=== PATIENT | female | born 1990 | race Caucasian/White ===

== ENCOUNTER 2018-03-28 07:00 | Inpatient (IN) | payer MEDICAID, OTHER ==
[2018-03-28] VITALS (51 sets, daily range): BP systolic 120–163; BP diastolic 59–97
[~2018-03-28] VITALS: Ht 167.6 cm; Wt 80.7 kg
[2018-03-28] MEDS ORDERED: D5 LR IV SOLUTION 1,000 ML IV ONE (07:20)
[2018-03-28] MEDS ORDERED: OXYTOCIN/NORMAL SALINE 500 ML IV SCH ×2 (07:38→15:14)
[2018-03-28] MEDS ORDERED: D5 LR IV SOLUTION 1,000 ML IV SCH (07:38)
--- NOTE | 2018-03-28 07:42 | OB Bishop Score ---
Miller Score 7 CTAHI SMYTH MD Mar 28, 2018 07:42
--- NOTE | 2018-03-28 07:44 | History & Physical ---
History and Physical Date Seen by Provider: Mar 28, 2018 Time Seen by Provider: 07:42 This patient is a 27-year-old G1 white female with an EDC of 12 1218 putting her now 39 weeks gestation. She is admitted for induction of labor at her request. She denies rupture membranes or bleeding. She's had no problems with his . Her GBS culture after 35 weeks gestation was negative. Allergies are none Medications are vitamins Medical social and surgical histories are per the antepartum record HEENT exam is normal Neck is supple with no lymphadenopathy no thyromegaly Abdomen is gravid soft nontender nondistended Extreme show no clubbing cyanosis. There is no Homans sign. Pelvic exam shows a cervix 1 cm dilated 80 percent effaced and 0 to +1 station vertex presentation with the cervix is soft and it anterior. This equates to a Miller at least 7. Assessment and plan 39 week intrauterine with no complications and a favorable cervix admitted now for induction of labor. Anticipation is for a vaginal delivery. 39 week admitted for elective induction of labor Allergies and Home Medications Allergies Coded Allergies: No Known Drug Allergies (Unverified , 03/28/18) Patient Home Medication List Home Medication List Reviewed: Yes CATHI SMYTH MD Mar 28, 2018 07:44
[2018-03-28 08:05] LABS: BASOPHILS % (AUTO) 0 % (0-10); EOSINOPHILS # (AUTO) 0.1 10^3/uL (0.0-0.3); EOSINOPHILS % (AUTO) 1 % (0-10); HEMATOCRIT 38 % (35-52); HEMOGLOBIN 13.1 G/DL (11.5-16.0); LYMPHOCYTES # (AUTO) 1.3 X 10^3 (1.0-4.0); LYMPHOCYTES % (AUTO) 13 % (12-44); MEAN CORPUSCULAR HEMOGLOBIN 30 PG (25-34); MEAN CORPUSCULAR HGB CONC 35 G/DL (32-36); MEAN CORPUSCULAR VOLUME 87 FL (80-99); MEAN PLATELET VOLUME 9.5 FL (7.4-10.4); MONOCYTES # (AUTO) 0.7 X 10^3 (0.0-1.0); MONOCYTES % (AUTO) 8 % (0-12); NEUTROPHILS # (AUTO) 7.4 X 10^3 (1.8-7.8); NEUTROPHILS % (AUTO) 78 % (42-75); PLATELET COUNT 415 10^3/uL (130-400); RED BLOOD COUNT 4.35 10^6/uL (4.35-5.85); RED CELL DISTRIBUTION WIDTH 12.7 % (10.0-14.5); WHITE BLOOD COUNT 9.5 10^3/uL (4.3-11.0)
[2018-03-28] MEDS ORDERED: LACTATED RINGERS 1,000 ML IV ONE (09:45)
[2018-03-28] MEDS ORDERED: SUFENTA 0.6MCG/ML BUPIVA 0.125 100 ML ONE (09:47)
[2018-03-28] MEDS ORDERED: BUPIVACAINE 0.25% 30 ML (SENSORCAINE) VIAL ONE (10:01)
[2018-03-28] MEDS ORDERED: fentaNYL INJECTION 100 MCG/2 ML AMP ONE (10:01)
[2018-03-28] MEDS ORDERED: PREN1TAB79 PO (10:04)
[2018-03-28] MEDS ORDERED: LACTATED RINGERS 1,000 ML IV SCH (11:52)
[2018-03-28] MEDS ORDERED: FLU QUADRIvalent (5+ YOA) 2018-2019 (AFLURIA) 0.5 ML IM ONE (12:00)
[2018-03-28] MEDS ORDERED: diphenhydrAMINE 50 MG/ML INJ (BENADRYL) IV PRN (12:00)
[2018-03-28] MEDS ORDERED: ONDANSETRON 4 MG/2 ML (SDV) Z0FRAN IV PRN (12:00)
[2018-03-28] MEDS ORDERED: METOCLOPRAMIDE INJ 10 MG/2 ML (REGLAN) IV PRN (12:00)
[2018-03-28] MEDS ORDERED: NALOXONE 0.4 MG/ML 1 ML (NARCAN) VIAL IV PRN ×2 (12:00)
[2018-03-28] MEDS ORDERED: EPIDURAL (SUFENTA 0.6MCG/ML BUPIVA 0.125%) 100 ML BAG EPI PRN (12:00)
[2018-03-28] MEDS ORDERED: LIDOCAINE/EPI 2% 1:200,00 (XYLOCAINE) 10 ML VIAL ONE (13:10)
[2018-03-28] MEDS ORDERED: LIDOCAINE/EPI 1%-1:200,000 (XYLOCAINE) 10 ML VIAL INJ ONE (14:10)
[2018-03-28] MEDS ORDERED: ONDANSETRON 4 MG/2 ML (SDV) Z0FRAN IVP PRN (15:15)
[2018-03-28] MEDS ORDERED: MEASLES,MUMPS,RUBELLA 1 EA INJ SC ONE (15:15)
[2018-03-28] MEDS ORDERED: BENZOCAINE/MENTHOL (DERMOPLAST) 56 ML CAN TP PRN (15:15)
[2018-03-28] MEDS ORDERED: TETANUS,DIPTH,PERTUSS P/F (BOOSTRIX) 0.5 ML VIAL IM ONE (15:15)
[2018-03-28] MEDS ORDERED: WITCH HAZEL(TUCKS) 40 EA JAR ONE (15:54)
[2018-03-28] MEDS: KETOROLAC 30 MG/ML VIAL IV SCH ×2 (15:59→22:10)
[2018-03-28] MEDS ORDERED: WITCH HAZEL(TUCKS) 40 EA JAR TOP PRN (16:00)
[2018-03-28] MEDS: oxyCODONE/APAP 5/325MG (PERCOCET 5) TABLET PO PRN ×2 (18:22→21:21)
--- NOTE | 2018-03-28 20:56 | OPERATIVE REPORT ---
DATE OF SERVICE: 03/28/2018 DELIVERY NOTE The patient delivered by term spontaneous vaginal delivery, a viable male with Apgars of 8 and 9 at 1 and 5 minutes respectively, weight of 6 pounds 5 ounces, time of 1434 and a cord blood gas is pending. The infant was delivered over a midline episiotomy under local and epidural analgesia. There was a nuchal cord x1 that was easily released after delivery of the head. The infant was bulb suctioned on delivery of the head and again on completion of delivery. Umbilical cord doubly clamped, father cut the cord, the baby was passed to mom's abdomen. The placenta delivered fairly promptly spontaneously Piña. It was normal with a 3-vessel cord. The cervix, vagina, rectum perineum were examined and found intact, except for the midline episiotomy that had been performed at the patient's request when the was bulging on the perineum and she could not expel the vertex through the perineum. The delivery was accomplished very promptly after the episiotomy was performed. The episiotomy was repaired with a single suture of 3-0 Vicryl Rapide in the usual manner without difficulty. Good hemostasis and good anatomic reapproximation. The patient tolerated the delivery and the repair well and remained in the LDR for recovery. The baby remained with the mom. Sponge and needle counts were correct. Estimated blood loss was around 200 mL. Placenta was sent to pathology for permanent section. Job ID: [id number] DocumentID: [id number] Dictated Date: 03/28/2018 14:52:14 Civil Engineering Professor Date: 03/28/2018 20:56:14 Dictated By: CATHI SMYTH MD
[2018-03-28] MEDS: DOCUSATE SODIUM 100 MG (COLACE) CAP PO SCH (22:10)
[2018-03-29 03:46] VITALS: BP 132/85
[2018-03-29] MEDS: KETOROLAC 30 MG/ML VIAL IV SCH (03:46)
--- NOTE | 2018-03-29 07:50 | Progress Note-Standard ---
Standard Progress Note Progress Notes/Assess & Plan Date Seen by a Provider: Mar 29, 2018 Time Seen by a Provider: 07:49 Progress/Assessment & Plan This patient is without complaint. She is ambulating, voiding, tolerating oral intake well has good pain control. Vital Signs 03/28/18 03/29/18 14:35 03:46 Temp 98.6 Pulse 92 Resp 18 B/P (MAP) 132/85 (101) Pulse Ox 97 O2 Delivery Room Air O2 Flow Rate 15.00 Vital signs are stable. Patient is afebrile. Fundus is firm below the umbilicus and nontender. Extremities show no clubbing cyanosis. There is no Homans sign. Assessment and plan post day number 1 status post term spontaneous vaginal delivery doing well. Plan is for routine convalescence care today and likely discharge home tomorrow CATHI SMYTH MD Mar 29, 2018 07:50
[2018-03-29] MEDS ORDERED: OXYC1TAB87 PO (07:54)
[2018-03-29] MEDS ORDERED: DOCU100C37 PO (07:54)
[2018-03-29] MEDS ORDERED: IBUP-1780 PO (07:54)
--- NOTE | 2018-03-29 07:55 | Discharge Instructions ---
Discharge Instructions Discharge Medications New, Converted or Re-Newed RX: RX on Chart Patient Instructions Patient Instructions: As directed Return to The Hospital For: As directed Activity & Diet Discharge Diet: No Restrictions Activity as Tolerated: No Orders-Post D/C & Referrals Follow Up Appt: Call to make follow up appt. for patient in 4 weeks. Activity Per routine post vaginal delivery instructions. Diet as tolerated Patient may shower or tub bathe as desired. CATHI SMYTH MD Mar 29, 2018 07:55
[2018-03-29] MEDS: oxyCODONE/APAP 5/325MG (PERCOCET 5) TABLET PO PRN ×3 (08:15→20:47)
[2018-03-29 11:09] VITALS: BP 130/79
[2018-03-29 12:50] VITALS: BP 116/80
[2018-03-30 00:19] VITALS: BP 124/76
[2018-03-30] MEDS: IBUPROFEN 800 MG (MOTRIN) TAB PO SCH ×3 (00:19→11:29)
[2018-03-30 05:26] VITALS: BP 138/84
--- NOTE | 2018-03-30 07:02 | Progress Note-Standard ---
Standard Progress Note Progress Notes/Assess & Plan Date Seen by a Provider: Mar 30, 2018 Time Seen by a Provider: 07:01 Progress/Assessment & Plan This patient is without complaint. She is ambulating, voiding, tolerating oral intake well has good pain control. Vital Signs 03/28/18 03/29/18 14:35 03:46 Temp 98.6 Pulse 92 Resp 18 B/P (MAP) 132/85 (101) Pulse Ox 97 O2 Delivery Room Air O2 Flow Rate 15.00 Vital signs are stable. Patient is afebrile. Fundus is firm below the umbilicus and nontender. Extremities show no clubbing cyanosis. There is no Homans sign. Assessment and plan post day number 1 status post term spontaneous vaginal delivery doing well. Plan is for routine convalescence care today and likely discharge home tomorrow March 30, 2018 Patient is without complaint. She is ambulating, voiding, tolerating oral intake well, has good pain control, and is requesting discharge home. Vital Signs 03/28/18 03/30/18 14:35 05:26 Temp 97.9 Pulse 70 Resp 20 B/P (MAP) 138/84 (102) Pulse Ox 99 O2 Delivery Room Air O2 Flow Rate 15.00 Vital signs are stable. Patient is afebrile. Fundus is firm below the umbilicus and nontender. Extremities show no clubbing cyanosis. There is no Homans sign. There is minimal pretibial pitting edema. Assessment and plan day number 2 status post term spontaneous vaginal delivery doing well. Plan is for discharge home with follow-up in clinic Final Diagnosis Term spontaneous vaginal delivery CATHI SMYTH MD Mar 30, 2018 07:02
[2018-03-30] MEDS: DOCUSATE SODIUM 100 MG (COLACE) CAP PO SCH (08:16)
[2018-03-30] MEDS: oxyCODONE/APAP 5/325MG (PERCOCET 5) TABLET PO PRN (08:16)
[2018-03-30 08:17] VITALS: BP 146/87
[2018-03-30] MEDS ORDERED: TETANUS,DIPTH,PERTUSS P/F (BOOSTRIX) 0.5 ML VIAL IM ONE (10:57)
== END 2018-03-30 12:35 | disposition home or self-care (01) | DRG 807 ==
LOC: LDRP 07:16
PROVIDERS: ADMIT Obstetrics & Gynecology; ATTEND Obstetrics & Gynecology
PROC: 10E0XZZ Delivery of Products of Conception, External Approach (ICD-10-PCS; principal; 2018-03-28)
PROC: 0W8NXZZ Division of Female Perineum, External Approach (ICD-10-PCS; 2018-03-28)
PROC: 3E033VJ Introduction of Other Hormone into Peripheral Vein, Percutaneous Approach (ICD-10-PCS; 2018-03-28)
DX: O69.81X0 Labor and delivery complicated by cord around neck, without compression, not applicable or unspecified (principal); Z37.0 Single live birth; Z3A.39 39 weeks gestation of pregnancy
CPT/HCPCS: 36415; 85025; 88307; 90715

== ENCOUNTER 2019-10-27 14:52 | Emergency (ER) | payer BC, MEDICAID ==
[~2019-10-27] VITALS: Ht 66 cm; Wt 82.0 kg
[~2019-10-27 14:52] MED LIST: DOCU100C37 PO; IBUP-1780 PO; OXYC1TAB87 PO; PREN1TAB79 PO
--- OUTSIDE RECORDS SUMMARY | 2019-10-27 14:56 | XMS REPORT | Continuity of Care Document ---
Author Organization Unknown Address Unknown Phone Unavailable Allergies Active Description Code Type Severity Reaction Onset Reported/Identified Relationship to Patient Clinical Status Yes No Known Drug Allergies [id number] Drug Allergy Unknown N/A 03/28/2018 Medications There is no data. Problems Date Dx Coded Attending Type Code Diagnosis Diagnosed By 03/30/2018 LIBRA KRUEGER, CATHI Givens Ot O69.81X0 LABOR AND DEL COMP BY CORD AROUND NECK, 03/30/2018 CATHI SMYTH MD, Ot Z37.0 SINGLE LIVE 03/30/2018 CATHI SMYTH MD, Ot Z3A.39 39 WEEKS GESTATION OF Procedures Code Description Performed By Per formed On [id number] DI VISION OF FEMALE PERINEUM, EXTERNAL AP 03/28/2018 [id number] DE LIVERY OF PRODUCTS OF CONCEPTION, EXTE 03/28/2018 [id number] IN TRODUCTION OF OTH HORMONE INTO PERIPH 03/28/2018 Results Test Result Range Complete blood count (CBC) with automate d white blood cell (WBC) differential - 03/28/18 07:45 Blood leukocytes automated count (number/volume) 9.5 10*3/uL 4.3-11.0 Blood erythrocytes automated count (number/volume) 4.35 10*6/uL 4.35-5.85 Venous blood hemoglobin measurement (mass/volume) 13.1 g/dL 11.5-16.0 Blood hematocrit (volume fraction) 38 % 35-52 Automated erythrocyte mean corpuscular volume 87 [ foz_us] 80-99 Automated erythrocyte mean corpuscular h emoglobin (mass per erythrocyte) 30 pg 25-34 Automated erythrocyte mean corpuscular h emoglobin concentration measurement (mass/volume) 35 g/dL 32-36 Automated erythrocyte distribution width ratio 12. 7 % 10.0- 14.5 Automated blood platelet count (count/volume) 415 10*3/uL 130-400 Automated blood platelet mean volume measurement 9.5 [foz_us] 7.4-10.4 Automated blood neutrophils/100 leukocytes 78 % 42-75 Automated blood lymphocytes/100 leukocytes 13 % 12-44 Blood monocytes/100 leukocytes 8 % 0-12 Automated blood eosinophils/100 leukocytes 1 % 0-10 Automated blood basophils/100 leukocytes 0 % 0-10 Blood neutrophils automated count (number/volume) 7.4 10*3 1.8-7.8 Blood lymphocytes automated count (number/volume) 1.3 10*3 1.0-4.0 Blood monocytes automated count (number/volume) 0. 7 10*3 0.0-1.0 Automated eosinophil count 0.1 10*3/uL 0 .0-0.3 Automated blood basophil count (count/volume) 0.0 10*3/uL 0.0-0.1 [id number] - 03/28/18 07:45 [id number] SPECIMEN AVAILABLE NRG Encounters ACCT No. Visit Date/Time Discharge Status Pt. Type Provider Facility Loc./Unit Complaint [id number] 01/09/2019 15:40:00 01/09/2019 23:59: 59 CLS Outpatient [facility] [id number] 03/28/2018 07:16:00 018 12:35:00 DIS Inpatient LIBRA KRUEGER, CATHI [facility] LDRP INDUCTION
[2019-10-27] MEDS ORDERED: PENI500T PO ×2 (15:10→15:11)
--- NOTE | 2019-10-27 15:11 | ED EENT ---
History of Present Illness General Chief Complaint: Dental Problems/Pain Stated Complaint: DENTAL PAIN Nursing Triage Note: pt c/o toothpain on the right upper jaw. Pt thinks she has an abscess Source: patient Exam Limitations: no limitations History of Present Illness Date Seen by Provider: Oct 27, 2019 Time Seen by Provider: 15:08 Initial Comments To ER with right upper tooth pain for the past few days. No swelling. Has a known cavity in this location Timing/Duration: abrupt Severity: moderate Location: dental Prearrival Treatment: no prearrival treatment Associated Symptoms: denies symptoms Allergies and Home Medications Allergies Coded Allergies: No Known Drug Allergies (Unverified , 03/28/18) Home Medications Docusate Sodium 100 Mg Capsule, 100 MG PO BID Prescribed by: CATHI LYN on 03/29/18 0754 Ibuprofen 800 Mg Tablet, 800 MG PO Q6H Prescribed by: CATHI LYN on 03/29/18 0754 Oxycodone HCl/Acetaminophen 1 Each Tablet, 1 TAB PO Q4H PRN for PAIN-MODERATE Prescribed by: CATHI LYN on 03/29/18 0754 Vit W-Ca,Fe,FA(<1 mg) 1 Each Tablet, 1 EACH PO DAILY, (Reported) Patient Home Medication List Home Medication List Reviewed: Yes Review of Systems Review of Systems Constitutional: see HPI Eyes: No Symptoms Reported Ears: No Symptoms Reported Nose: no symptoms reported Mouth: see HPI Throat: no symptoms reported Respiratory: no symptoms reported Cardiovascular: no symptoms reported Musculoskeletal: no symptoms reported Past Ylhwyim-Sdaaau-Wzumvr Hx Patient Social History Type Used: Cigarettes Recent Foreign Travel: No Contact w/Someone Who Travel: No Recent Infectious Disease Expo: No Recent Hopitalizations: No Immunizations Up To Date PED Vaccines UTD: Yes Seasonal Allergies Seasonal Allergies: No Past Medical History Surgeries: No Respiratory: No Cardiac: No Neurological: No Female Reproductive Disorders: Denies Sexually Transmitted Disease: Yes HIV/AIDS: No Genitourinary: No Gastrointestinal: No Musculoskeletal: Yes (LEFT WRIST FX AGE 14 YRS) Fractures Endocrine: No HEENT: No Loss of Vision: Denies Hearing Impairment: Denies Cancer: No Psychosocial: No Integumentary: No Blood Disorders: No Family Medical History Cardiovascular disease 19 MOTHER MATERNAL GRANDMOTHER MATERNSL GRANDFATHER Colorectal cancer MATERNAL UNCLE Congenital disease Congenital heart disease FH: throat cancer MATERNAL UNCLE Hypercholesterolemia MATERNAL GRANDMOTHER Hypertension 19 MOTHER MATERNAL GRANDMOTHER Myocardial infarction MATERNSL GRANDFATHER Neoplasm MATERNSL GRANDFATHER (LUNG CANCER) Osteoporosis 19 MOTHER Physical Exam Vital Signs Vital Signs - First Documented 10/27/19 15:05 Temp 36.9 Pulse 70 Resp 20 B/P (MAP) 128/83 (98) Pulse Ox 100 O2 Delivery Room Air Height, Weight, BMI Height: 5'6.00" Weight: 178lbs. 0.0oz. 80.407194tk; 188.00 BMI Method: General Appearance: WD/WN, no apparent distress Eyes: bilateral eye normal inspection, bilateral eye PERRL, bilateral eye EOMI Ears: bilateral ear auricle normal Nose: normal inspection; No active bleeding Mouth/Throat: normal mouth inspection, pharynx normal, dental tenderness Progress/Results/Core Measures Results/Orders My Orders Orders - TRAVIS STEELE APRN Ketorolac Injection (Toradol Injection) (10/27/19 15:15) Lidocaine 2% Viscous 15 Ml (Xylocaine Vi (10/27/19 15:15) Penicillin Vk Tablet (Veetid Tablet) (10/27/19 15:15) Vital Signs/I&O 10/27/19 15:05 Temp 36.9 Pulse 70 Resp 20 B/P (MAP) 128/83 (98) Pulse Ox 100 O2 Delivery Room Air Blood Pressure Mean: 98 Departure Impression Primary Impression: Dental caries Disposition: 01 HOME, SELF-CARE Condition: Stable Departure-Patient Inst. Decision time for Depature: 15:09 Referrals: [facility] (PCP/Family) Primary Care Physician Patient Instructions: Dental Pain (DC) Add. Discharge Instructions: You can go to [facility] on the and [place] tomorrow to make an appointment. Take the antibiotics as directed in addition to Tylenol and ibuprofen for pain control. All discharge instructions reviewed with patient and/or family. Voiced understa nding. Scripts Penicillin V Potassium (Penicillin V Potassium) 500 Mg Tablet 500 MG PO QID, #28 TAB . Prov: TRAVIS STEELE APRN 10/27/19 Images Mouth/Nose 1 - Caries, Tenderness TRAVIS STEELE APRN Oct 27, 2019 15:11
[2019-10-27] MEDS ORDERED: PENICILLIN V K 250 MG TAB PO ONE (15:15)
[2019-10-27] MEDS ORDERED: KETOROLAC 60 MG/2 ML VIAL IM ONE (15:15)
[2019-10-27] MEDS ORDERED: LIDOCAINE 2% VISCOUS 15 ML UDC PO ONE (15:15)
[2019-10-27 15:37] VITALS: BP 127/68
== END 2019-10-27 15:37 | disposition home or self-care (01) ==
LOC: EDUNIT# 14:52 → ER 14:53
DX: K02.9 Dental caries, unspecified (principal)
CPT/HCPCS: 99284

== ENCOUNTER 2021-01-07 07:00 | Inpatient (IN) | payer MEDICAID ==
[2021-01-07] VITALS (39 sets, daily range): BP systolic 111–159; BP diastolic 58–88
[~2021-01-07] VITALS: Ht 167.7 cm; Wt 80.3 kg
[~2021-01-07 07:00] MED LIST changes: +PENI500T PO
[2021-01-07] MEDS ORDERED: OXYTOCIN PRE-MIX DRIP 500 ML IV SCH ×3 (07:45→15:15)
[2021-01-07] MEDS ORDERED: CATHETER FLUSH 10 ML SYR IV PRN (07:45)
[2021-01-07] MEDS ORDERED: D5 LR IV SOLUTION 1,000 ML IV ONE (07:53)
[2021-01-07] MEDS ORDERED: LACTATED RINGERS 1,000 ML IV ONE (07:58)
[2021-01-07] MEDS ORDERED: fentaNYL 2 mcg/ml BUPIVA 0.125 100 ML ONE (07:58)
[2021-01-07] MEDS: D5 LR IV SOLUTION 1,000 ML IV SCH ×4 (08:00→18:22)
--- NOTE | 2021-01-07 08:07 | History & Physical ---
History and Physical Date Seen by Provider: Jan 07, 2021 Time Seen by Provider: 08:05 This patient is a 31-year-old 2 para 1 female who presents now 39 weeks gestation for elective induction of labor. Her has been uncomplicated. Her GBS culture is negative. She denies rupture membranes or bleeding. She has only occasional contraction. She does feel baby moving. Allergies are none Medications are vitamins Medical social and surgical history is all per the antepartum record HEENT exam is normal Neck is supple no lymphadenopathy no thyromegaly Abdomen is gravid soft nontender nondistended Extremities show no clubbing or cyanosis. There is no Homans' sign. Pelvic exam shows a cervix 4 cm dilated 90% effaced -1 station vertex presentation with intact membranes. Amniotomy is performed with release of clear fluid Assessment and plan 39-week gestationAdmitted for induction of laborWe anticipate a vaginal delivery 39 weeks gestation admitted for elective induction of labor Allergies and Home Medications Allergies Coded Allergies: No Known Drug Allergies (Unverified , 03/28/18) Patient Home Medication List Home Medication List Reviewed: Yes Docusate Sodium (Docusate Sodium) 100 Mg Capsule, 100 MG PO BID Prescribed by: CATHI LYN on 03/29/18 0754 Ibuprofen (Ibuprofen) 800 Mg Tablet, 800 MG PO Q6H Prescribed by: CATHI LYN on 03/29/18 0754 Oxycodone HCl/Acetaminophen (Percocet 5-325 mg Tablet) 1 Each Tablet, 1 TAB PO Q4H PRN for PAIN-MODERATE Prescribed by: CATHI LYN on 03/29/18 0754 Penicillin V Potassium (Penicillin V Potassium) 500 Mg Tablet, 500 MG PO QID Prescribed by: TRAVIS STEELE on 10/27/19 1511 Vit W-Ca,Fe,FA(<1 mg) ( Vitamins) 1 Each Tablet, 1 EACH PO DAILY, (Reported) Entered as Reported by: BARAK GORE on 03/28/18 1004 CATHI SMYTH MD Jan 07, 2021 08:07
[2021-01-07] MEDS ORDERED: IBUP-1780 PO (08:13)
[2021-01-07] MEDS ORDERED: DOCU100C37 PO (08:13)
--- NOTE | 2021-01-07 08:14 | Discharge Inst-Surgical ---
Discharge Inst-Surgical Depart Medication/Instructions New, Converted or Re-Newed RX: RX on Chart Consults/Follow Up Orders & Referrals Follow Up Appt: Call to make follow up appt. for patient in 4 weeks. Activity Per routine post vaginal delivery instructions. Diet as tolerated Patient may shower or tub bathe as desired. Activity Activity as Tolerated: No Diet Discharge Diet: No Restrictions CATHI SMYTH MD Jan 07, 2021 08:13
[2021-01-07 09:18] LABS: BASOPHILS % (AUTO) 0 % (0-10); EOSINOPHILS # (AUTO) 0.1 10^3/uL (0.0-0.3); EOSINOPHILS % (AUTO) 1 % (0-10); HEMATOCRIT 35 % (35-52); HEMOGLOBIN 11.8 g/dL (11.5-16.0); LYMPHOCYTES # (AUTO) 1.5 10^3/uL (1.0-4.0); LYMPHOCYTES % (AUTO) 13 % (12-44); MEAN CORPUSCULAR HEMOGLOBIN 30 pg (25-34); MEAN CORPUSCULAR HGB CONC 34 g/dL (32-36); MEAN CORPUSCULAR VOLUME 89 fL (80-99); MEAN PLATELET VOLUME 9.3 fL (9.0-12.2); MONOCYTES # (AUTO) 0.6 10^3/uL (0.0-1.0); MONOCYTES % (AUTO) 5 % (0-12); NEUTROPHILS # (AUTO) 9.4 10^3/uL (1.8-7.8); NEUTROPHILS % (AUTO) 80 % (42-75); PLATELET COUNT 371 10^3/uL (130-400); WHITE BLOOD COUNT 11.8 10^3/uL (4.3-11.0)
[2021-01-07] MEDS ORDERED: METOCLOPRAMIDE INJ 10 MG/2 ML (REGLAN) IV PRN (10:15)
[2021-01-07] MEDS ORDERED: ONDANSETRON 4 MG/2 ML (SDV) Z0FRAN IV PRN (10:15)
[2021-01-07] MEDS ORDERED: NALOXONE 0.4 MG/ML 1 ML (NARCAN) VIAL IV PRN ×2 (10:15)
[2021-01-07] MEDS ORDERED: diphenhydrAMINE 50 MG/ML INJ (BENADRYL) IV PRN (10:15)
[2021-01-07] MEDS ORDERED: LACTATED RINGERS 1,000 ML IV SCH (10:15)
[2021-01-07] MEDS ORDERED: EPIDURAL (fentaNYL 2 MCG/ML BUPIVA 0.125%)100 ML BAG EPI SCH (10:15)
--- NOTE | 2021-01-07 14:11 | OPERATIVE REPORT ---
DATE OF SERVICE: 01/07/2021 DELIVERY NOTE The patient delivered a viable female via spontaneous vaginal delivery at 39 weeks' gestation. Infant had Apgars of 9 and 9 at 1 and 5 minutes respectively, weight of 6 pounds 7 ounces, time of 13:16 and a cord blood pH that is pending. The was delivered over a first-degree perineal laceration under epidural analgesia. The was bulb suctioned on delivery of the head and again on completion of delivery. The umbilical cord was doubly clamped, father cut the cord, the baby was passed to mother's abdomen. Placenta delivered spontaneously Piña. It was a battledore placenta with a 3-vessel cord. The cervix, vagina, rectum, and perineum were examined and found intact, except for the first-degree perineal laceration that was repaired with a single suture of 3-0 Vicryl in the usual manner to good reapproximation and good hemostasis. Sponge and needle counts were correct on completion of the procedure. Blood loss was around 200 mL. The patient tolerated the procedure and the delivery and the repair well and remained in the LDR for recovery. The baby remained with the mother. Job ID: [id number] DocumentID: [id number] Dictated Date: 01/07/2021 13:33:23 [place] Operator Date: 01/07/2021 14:10:36 Dictated By: CATHI SMYTH MD
[2021-01-07] MEDS ORDERED: ONDANSETRON 4 MG/2 ML (SDV) Z0FRAN IVP PRN (15:15)
[2021-01-07] MEDS ORDERED: MEASLES,MUMPS,RUBELLA 1 EA INJ SC ONE (15:15)
[2021-01-07] MEDS ORDERED: TETANUS,DIPTH,PERTUSS P/F (BOOSTRIX) 0.5 ML VIAL IM ONE (15:15)
[2021-01-07] MEDS ORDERED: BENZOCAINE/MENTHOL (DERMOPLAST) 56 ML CAN TP PRN (15:15)
[2021-01-07] MEDS: KETOROLAC 30 MG/ML VIAL IVP SCH ×3 (18:21→22:34)
[2021-01-07] MEDS: IBUPROFEN 800 MG (MOTRIN) TAB PO SCH ×2 (18:21→23:32)
[2021-01-07] MEDS: DOCUSATE SODIUM 100 MG (COLACE) CAP PO SCH (20:53)
[2021-01-08 03:45] VITALS: BP 102/56
[2021-01-08] MEDS: oxyCODONE/APAP 5/325MG (PERCOCET 5) TABLET PO PRN ×2 (03:48→11:04)
[2021-01-08] MEDS: IBUPROFEN 800 MG (MOTRIN) TAB PO SCH ×2 (05:27→13:09)
--- NOTE | 2021-01-08 07:38 | Progress Note ---
Standard Progress Note Progress Notes/Assess & Plan Date Seen by a Provider: Jan 08, 2021 Time Seen by a Provider: 07:37 Progress/Assessment & Plan This patient is without complaint. Is ambulating, voiding, tolerating oral intake well has good pain control. Vital Signs 01/08/21 03:45 Temp 36.2 Pulse 78 Resp 16 B/P (MAP) 102/56 (71) Pulse Ox 100 O2 Delivery Room Air Vital signs are stable. Patient is afebrile. Fundus is firm below the umbilicus and nontender. Extremities show no clubbing or cyanosis. There is no Homans' sign. Assessment and plan day 1 doing well plan routine convalescent care Final Diagnosis 39-week spontaneous vaginal delivery CATHI SMYTH MD Jan 08, 2021 7:38 am
[2021-01-08 08:38] VITALS: BP 123/72
[2021-01-08] MEDS: DOCUSATE SODIUM 100 MG (COLACE) CAP PO SCH (08:41)
--- NOTE | 2021-01-08 09:33 | Anesthesia-General Post-Op ---
General Patient Condition Mental Status/LOC: Same as Preop Cardiovascular: Satisfactory Nausea/Vomiting: Absent Respiratory: Satisfactory Pain: Controlled Complications: Absent Post Op Complications Complications None Follow Up Care/Instructions Patient Instructions None needed. Anesthesia/Patient Condition Patient Condition Patient is doing well, no complaints, stable vital signs, no apparent adverse anesthesia problems. No complications reported per nursing. RADHA PENA CRNA Jan 08, 2021 09:33
--- NOTE | 2021-01-08 09:34 | Anesthesia-Regional Post-Op ---
Regional Patient Condition Mental Status: Alert, Oriented x3 Circulation: Same as Pre-Op Headache: Absent Sensation: Full Recovery Motor Block: Absent Post Op Complications Complications None Follow Up Care/Instructions Patient Instructions None needed. Anesthesia/Patient Condition Patient is doing well, no complaints, stable vital signs, no apparent adverse anesthesia problems. No complications reported per nursing. RADHA PENA CRNA Jan 08, 2021 09:34
[2021-01-08 13:06] VITALS: BP 116/68
[2021-01-08 17:21] VITALS: BP 116/68
== END 2021-01-08 17:30 | disposition home or self-care (01) | DRG 807 ==
LOC: LDRP 07:11
PROVIDERS: ADMIT Obstetrics & Gynecology; ATTEND Obstetrics & Gynecology
PROC: 10E0XZZ Delivery of Products of Conception, External Approach (ICD-10-PCS; principal; 2021-01-07)
PROC: 0HQ9XZZ Repair Perineum Skin, External Approach (ICD-10-PCS; 2021-01-07)
DX: O70.0 First degree perineal laceration during delivery (principal); Z37.0 Single live birth; Z3A.39 39 weeks gestation of pregnancy
CPT/HCPCS: 36415; 85025; 86850; 86900; 86901

== ENCOUNTER 2022-01-08 07:38 | Emergency (ER) | payer MEDICAID ==
[~2022-01-08] VITALS: Ht 167 cm; Wt 77.0 kg
[2022-01-08] MEDS ORDERED: LACTATED RINGERS 1,000 ML IV ONE (08:20)
--- NOTE | 2022-01-08 08:22 | ED General ---
General Chief Complaint: COVID19 Suspect/Confirmed Stated Complaint: COVID+,N/V,DIZZINESS Nursing Triage Note: PT PRESENTS TO ED WITH COMPLAINTS OF COVID POSITIVE X 7 DAYS. REPORTS INCREASED N/V/D RECENTLY. PT ALSO REPORTS DIZZINESS. Source of Information: Patient Exam Limitations: No Limitations History of Present Illness Date Seen by Provider: Jan 08, 2022 Time Seen by Provider: 08:09 Initial Comments Patient is a 32-year-old female who presents to the emergency room with nausea, decreased appetite, generalized malaise, fatigue, dizziness and weakness. Patient was diagnosed with COVID on January 01. She states she has basically slept the last 6 days. She has a cough productive of greenish sputum. She does not feel short of breath. She is a smoker. No abdominal pain. She is having some diarrhea. She denies dysuria, urgency or frequency. No abnormal vaginal bleeding. Her last menstrual cycle was at the beginning of December. She states there is no way she could be . She has a daughter who turned 1 yesterday. Patient denies fever today. She has not taken any Tylenol or ibuprofen today. No headache today. Just feels generally very poorly. No daily medications. No allergies to medications. All other review of systems reviewed and negative except as stated Timing/Duration: 6-7 Days Severity: Moderate Associated Systoms: Diaphoresis, Loss of Appetite, Malaise, Nausea/Vomiting, Weakness Allergies and Home Medications Allergies Coded Allergies: No Known Drug Allergies (Unverified , 03/28/18) Patient Home Medication List Home Medication List Reviewed: Yes Docusate Sodium (Docusate Sodium) 100 Mg Capsule, 100 MG PO BID Prescribed by: CATHI LYN on 01/07/21 0813 Ibuprofen (Ibuprofen) 800 Mg Tablet, 800 MG PO Q6H Prescribed by: CATHI LYN on 01/07/21 0813 Oxycodone HCl/Acetaminophen (Percocet 5-325 mg Tablet) 1 Each Tablet, 1 TAB PO Q4H PRN for PAIN-MODERATE Prescribed by: CATHI LYN on 03/29/18 0754 Vit W-Ca,Fe,FA(<1 mg) ( Vitamins) 1 Each Tablet, 1 EACH PO DAILY, (Reported) Entered as Reported by: BARAK GORE on 03/28/18 1004 Review of Systems Review of Systems Constitutional: see HPI EENTM: no symptoms reported Respiratory: cough, phlegm (green) Cardiovascular: no symptoms reported Gastrointestinal: diarrhea, nausea, vomiting Genitourinary: no symptoms reported : No LMP: Dec 23, 2021 Musculoskeletal: no symptoms reported Skin: other (sweaty) Hematologic/Lymphatic: Other (increased thirst) All Other Systems Reviewed Negative Unless Noted: Yes Past Mnnrqgz-Eqktnb-Emczzk Hx Patient Social History Tobacco Use?: Yes Tobacco type used: Cigarettes Smoking Status: Current Everyday Smoker Substance use?: No Alcohol Use?: No Pt feels they are or have been: No Immunizations Up To Date PED Vaccines UTD: Yes Seasonal Allergies Seasonal Allergies: No Past Medical History Surgeries: No Respiratory: No Cardiac: No Neurological: No Female Reproductive Disorders: Denies Sexually Transmitted Disease: Yes HIV/AIDS: No Genitourinary: No Gastrointestinal: No Musculoskeletal: Yes (LEFT WRIST FX AGE 14 YRS) Fractures Endocrine: No HEENT: No Loss of Vision: Denies Hearing Impairment: Denies Cancer: No Psychosocial: No Integumentary: No Blood Disorders: No Family Medical History Cardiovascular disease 19 MOTHER MATERNAL GRANDMOTHER MATERNSL GRANDFATHER Colorectal cancer MATERNAL UNCLE Congenital disease Congenital heart disease FH: throat cancer MATERNAL UNCLE Hypercholesterolemia MATERNAL GRANDMOTHER Hypertension 19 MOTHER MATERNAL GRANDMOTHER Myocardial infarction MATERNSL GRANDFATHER Neoplasm MATERNSL GRANDFATHER (LUNG CANCER) Osteoporosis 19 MOTHER Physical Exam Vital Signs Vital Signs - First Documented 01/08/22 07:49 Temp 36.8 Pulse 97 Resp 18 B/P (MAP) 138/101 (113) Pulse Ox 98 Capillary Refill : Less Than 3 Seconds Height, Weight, BMI Height: 5'6.00" Weight: 178lbs. 0.0oz. [id number]; 27.00 BMI Method: General Appearance: No Apparent Distress, WD/WN Eyes: Bilateral Eye Normal Inspection, Bilateral Eye PERRL, Bilateral Eye EOMI HEENT: TMs Normal, Pharynx Normal, Other (dry oral mucosa) Neck: Non Tender, Supple Respiratory: Lungs Clear, Normal Breath Sounds, No Accessory Muscle Use, No Respiratory Distress, Other (sats 97% RA) Cardiovascular: Regular Rate, Rhythm, Normal Peripheral Pulses Gastrointestinal: Non Tender, Soft Extremity: Normal Capillary Refill, Normal Inspection, Normal Range of Motion, Non Tender, No Calf Tenderness, No Pedal Edema Neurologic/Psychiatric: Alert, Oriented x3, No Motor/Sensory Deficits, Normal Mood/Affect, floor covering installer II-XII Norm as Tested Skin: Normal Color, Damp Progress/Results/Core Measures Suspected Sepsis SIRS Temperature: Pulse: 97 Respiratory Rate: 18 Blood Pressure 138 /101 Mean: 113 Laboratory Tests 01/08/22 08:30: Creatinine 0.82, Total Bilirubin 0.7 Results/Orders Lab Results Laboratory Tests Test 01/08/22 08:30 Range/Units Sodium Level 140 135-145 MMOL/L Potassium Level 4.0 3.6-5.0 MMOL/L Chloride Level 103 98-107 MMOL/L Carbon Dioxide Level 19 L 21-32 MMOL/L Anion Gap 18 H 5-14 MMOL/L Blood Urea Nitrogen 18 7-18 MG/DL Creatinine 0.82 0.60-1.30 MG/DL Estimat Glomerular Filtration Rate 99 BUN/Creatinine Ratio 22 Glucose Level 114 H 70-105 MG/DL Calcium Level 9.2 8.5-10.1 MG/DL Corrected Calcium 8.9 8.5-10.1 MG/DL Total Bilirubin 0.7 0.1-1.0 MG/DL Aspartate Amino Transf (AST/SGOT) 25 5-34 U/L Alanine Aminotransferase (ALT/SGPT) 40 0-55 U/L Alkaline Phosphatase 84 40-136 U/L Total Protein 7.8 6.4-8.2 GM/DL Albumin 4.4 3.2-4.5 GM/DL My Orders Orders - ARELI ACOSTA MD Ed Iv/Invasive Line Start (01/08/22 08:18) Comprehensive Metabolic Panel (01/08/22 08:18) Lactated Ringers (Lr 1000 Ml Iv Solution (01/08/22 08:30) Lactated Ringers (Lr 1000 Ml Iv Solution (01/08/22 08:20) Lactated Ringers (Lr 1000 Ml Iv Solution (01/08/22 09:30) General/Regular (01/08/22 Lunch) Vital Signs/I&O 01/08/22 07:49 Temp 36.8 Pulse 97 Resp 18 B/P (MAP) 138/101 (113) Pulse Ox 98 Capillary Refill : Less Than 3 Seconds Blood Pressure Mean: 113 Progress Note : Time: 10:27 Progress Note Patient is feeling much better after 2 L of LR. She has about 200 cc left on the second bag. I have ordered some toast and Sprite for the patient. Lab work, CMP reviewed and within normal limits. We will send her home with some Zofran. I have no acute concern for any suspicious findings that would require hospitalization. No clinical or objective findings of concern. Patient is reassured. She is encouraged to drink fluids. Tylenol and ibuprofen as needed, all questions are sought and answered. Patient stable for discharge Departure Impression Primary Impression: Dehydration Additional Impression: COVID-19 Disposition: 01 HOME, SELF-CARE Condition: Improved Departure-Patient Inst. Decision time for Depature: 10:28 Referrals: [facility] [place] (PCP/Family) Primary Care Physician Patient Instructions: COVID-19 ED, Dehydration, Adult ED Add. Discharge Instructions: Use the Zofran, 4 mg tablets every 8 hours as needed for nausea. Extra strength Tylenol, 2 tablets every 6 hours as needed for pain/fever. You can also take [id number] ibuprofen 3 tablets which is 600 mg for aches and pains. Always take ibuprofen with food. [facility] diet today with plenty of fluids to stay well-hydrated. Return to the emergency department for any new, concerning or emergent complaints. Follow-up with your primary care provider as needed. Scripts Ondansetron (Ondansetron Odt) 4 Mg Tab.rapdis 4 MG PO Q8H PRN for nausea, #12 TAB Prov: ARELI ACOSTA MD 01/08/22 Work/School Note: Work Release Form Date Seen in the Emergency Department: Jan 08, 2022 Return to Work: Jan 09, 2022 Copy Copies To 1: ALISTAIR NUNEZ KATHRYN M MD Jan 08, 2022 08:22
[2022-01-08] MEDS ORDERED: LACTATED RINGERS 1,000 ML IV SCH ×2 (08:30→09:30)
[2022-01-08 08:46] LABS: ALBUMIN 4.4 GM/DL (3.2-4.5)
[2022-01-08 08:47] LABS: CALCIUM 9.2 MG/DL (8.5-10.1)
[2022-01-08 08:48] LABS: TOTAL PROTEIN 7.8 GM/DL (6.4-8.2)
[2022-01-08 08:50] LABS: BILIRUBIN,TOTAL 0.7 MG/DL (0.1-1.0)
[2022-01-08 08:52] LABS: CREATININE SERUM 0.82 MG/DL (0.60-1.30)
[2022-01-08] MEDS ORDERED: ONDA4TAB11 PO (10:30)
[2022-01-08 12:14] VITALS: BP 114/89
== END 2022-01-08 12:14 | disposition home or self-care (01) ==
LOC: EDUNIT# 07:38 → ER 07:39
DX: U07.1 COVID-19 (principal); E86.0 Dehydration; F17.210 Nicotine dependence, cigarettes, uncomplicated; Z73.0 Burn-out; Z28.310 Unvaccinated for COVID-19
CPT/HCPCS: 36415; 80053